=== PATIENT | female | born 1960 | race African-American/Black ===

== ENCOUNTER 2023-06-01 17:46 | Emergency (ER) | payer MEDICARE, MEDICAID ==
[~2023-06-01] VITALS: Ht 177.8 cm; Wt 150.0 kg
[2023-06-01 18:12] VITALS: O2SAT 97
[2023-06-01] MEDS ORDERED: ACET-2708 MT (21:18)
[2023-06-01] MEDS ORDERED: KETOROLAC 60MG/2ML VIAL IM ONE (21:30)
[2023-06-01 21:36] VITALS: BP 135/68; PULSE 85; RESP 17; TEMP 98.1
== END 2023-06-01 21:37 | disposition home or self-care (01) ==
LOC: ER 17:46
DX: S09.90XA Unspecified injury of head, initial encounter (principal); M79.10 Myalgia, unspecified site; R51.9 Headache, unspecified; M25.512 Pain in left shoulder; M25.522 Pain in left elbow; E11.9 Type 2 diabetes mellitus without complications; E78.00 Pure hypercholesterolemia, unspecified; I10 Essential (primary) hypertension; X58.XXXA Exposure to other specified factors, initial encounter; Y93.89 Activity, other specified; Y92.89 Other specified places as the place of occurrence of the external cause; Y99.8 Other external cause status
CPT/HCPCS: 99285; 70450; 73030; 73080; 96372; J1885